=== PATIENT | female | born 1970 | race Caucasian/White ===

== ENCOUNTER 2022-10-03 09:12 | Outpatient (CLI) | payer OTHER | END 2022-10-03 09:13 | disposition home or self-care (01) | LOC: NAV RAD 09:12 | PROVIDERS: ATTEND Family Medicine | DX: S29.9XXA Unspecified injury of thorax, initial encounter (principal); V89.2XXS Person injured in unspecified motor-vehicle accident, traffic, sequela | CPT/HCPCS: 71046 ==